=== PATIENT | male | born 1940 | race Asian ===

== ENCOUNTER → 2017-06-08 | Outpatient (CLI) | payer MEDICARE, MEDICAID ==
[2017-06-08 10:49] LABS: ASPARTATE AMINO TRANSFERASE 26 U/L (15-37); BLOOD UREA NITROGEN 15 mg/dL (7-18)
[2017-06-08 10:50] LABS: HEMATOCRIT 43.5 % (39.2-51.8); HEMOGLOBIN 14.7 g/dL (13.7-18.0)
== END | disposition home or self-care (01) ==
LOC: LAB 10:07
PROVIDERS: ATTEND Family Medicine
DX: R03.0 Elevated blood-pressure reading, without diagnosis of hypertension (principal); R73.01 Impaired fasting glucose; R79.89 Other specified abnormal findings of blood chemistry
CPT/HCPCS: 36415; 80053; 80061; 82043; 83036; 85025

== ENCOUNTER → 2017-10-22 | Outpatient (CLI) | payer MEDICARE, MEDICAID ==
[2017-10-22 10:07] LABS: BASOPHILS # (AUTO) 0.01 x10^3/uL (0-0.1); BASOPHILS % (AUTO) 0 % (0-1); EOSINOPHILS # (AUTO) 0.03 x10^3/uL (0-0.4); EOSINOPHILS % (AUTO) 1 % (1-7); LYMPHOCYTES # (AUTO) 1.34 x10^3/uL (1-3.4); LYMPHOCYTES % (AUTO) 35 % (22-44); MD NO; MEAN CORPUSCULAR HEMOGLOBIN 32.2 pg (27.5-34.5); MEAN CORPUSCULAR HGB CONC 33.8 g/dL (33.2-36.2); MEAN CORPUSCULAR VOLUME 95.4 fL (81-97); MEAN PLATELET VOLUME 7.2 fL (7.4-10.4); MONOCYTES # (AUTO) 0.28 x10^3/uL (0.2-0.8); MONOCYTES % (AUTO) 7 % (2-9); NEUTROPHILS # (AUTO) 2.15 x10^3/uL (1.8-6.8); NEUTROPHILS % (AUTO) 56 % (42-75); PLATELET COUNT 213 x10^3/uL (130-400); RED BLOOD COUNT 4.84 x10^6/uL (4.38-5.82); RED CELL DISTRIBUTION WIDTH 13.7 % (9.4-14.8)
[2017-10-22 10:15] LABS: ALANINE AMINOTRANSFERASE 31 U/L (12-78); ALBUMIN 3.9 g/dL (3.4-5.0); ANION GAP 7 mmol/L (5-15); CALCIUM 8.7 mg/dL (8.5-10.1); CHLORIDE 103 mmol/L (98-107)
[2017-10-22 10:17] LABS: ALKALINE PHOSPHATASE 55 U/L (45-117); BILIRUBIN,TOTAL 0.8 mg/dL (0.2-1.0); CHOL/HDL RATIO 2.7; CHOLESTEROL, TOTAL 172 mg/dL (140-239); HDL CHOL % 37 % (26-37); HDL CHOLESTEROL (DIRECT) 63 mg/dL (40-60); LDL CHOLESTEROL,CALCULATED 93 mg/dL (54-169); LDL/HDL RATIO 1.5 (0.5-3.0); TOTAL PROTEIN 7.6 g/dL (6.4-8.2); TRIGLYCERIDES 79 mg/dL (50-200); VLDL CHOLESTEROL 16 mg/dL (0-25)
[2017-10-22 13:38] LABS: HEMOGLOBIN A1C 6.3 % (4.2-6.3)
== END ==
LOC: LAB 09:39
PROVIDERS: ATTEND Family Medicine
DX: R03.0 Elevated blood-pressure reading, without diagnosis of hypertension (principal); R73.01 Impaired fasting glucose
CPT/HCPCS: 36415; 80053; 80061; 82043; 83036; 85025

== ENCOUNTER → 2018-03-19 | Outpatient (CLI) | payer MEDICARE, MEDICAID ==
[2018-03-19 10:24] LABS: ALANINE AMINOTRANSFERASE 56 U/L (12-78); ALBUMIN 3.4 g/dL (3.4-5.0); ANION GAP 10 mmol/L (5-15); CALCIUM 8.8 mg/dL (8.5-10.1); CHLORIDE 98 mmol/L (98-107); CREATININE 0.89 mg/dL (0.7-1.3)
[2018-03-19 10:27] LABS: ALKALINE PHOSPHATASE 65 U/L (45-117); BILIRUBIN,TOTAL 0.7 mg/dL (0.2-1.0); TOTAL PROTEIN 7.8 g/dL (6.4-8.2)
[2018-03-19 10:32] LABS: HEMOGLOBIN A1C 6.4 % (4.2-6.3)
== END | disposition home or self-care (01) ==
LOC: LAB 09:48
PROVIDERS: ATTEND Family Medicine
DX: R73.01 Impaired fasting glucose (principal)
CPT/HCPCS: 36415; 80053; 83036

== ENCOUNTER → 2018-06-24 | Outpatient (CLI) | payer MEDICARE, MEDICAID ==
[2018-06-24 10:00] LABS: BASOPHILS # (AUTO) 0.01 x10^3/uL (0-0.1); BASOPHILS % (AUTO) 0 % (0-1); EOSINOPHILS # (AUTO) 0.06 x10^3/uL (0-0.4); EOSINOPHILS % (AUTO) 2 % (1-7); LYMPHOCYTES # (AUTO) 1.43 x10^3/uL (1-3.4); LYMPHOCYTES % (AUTO) 35 % (22-44); MD NO; MEAN CORPUSCULAR HEMOGLOBIN 33.3 pg (27.5-34.5); MEAN CORPUSCULAR HGB CONC 34.3 g/dL (33.2-36.2); MEAN PLATELET VOLUME 7.9 fL (7.4-10.4); MONOCYTES # (AUTO) 0.32 x10^3/uL (0.2-0.8); MONOCYTES % (AUTO) 8 % (2-9); NEUTROPHILS # (AUTO) 2.29 x10^3/uL (1.8-6.8); NEUTROPHILS % (AUTO) 56 % (42-75); PLATELET COUNT 198 x10^3/uL (130-400); RED BLOOD COUNT 4.83 x10^6/uL (4.38-5.82); RED CELL DISTRIBUTION WIDTH 14.6 % (9.4-14.8)
[2018-06-24 10:08] LABS: ALANINE AMINOTRANSFERASE 33 U/L (12-78); ANION GAP 3 mmol/L (5-15); CALCIUM 8.4 mg/dL (8.5-10.1); CHLORIDE 103 mmol/L (98-107); CREATININE 1.06 mg/dL (0.7-1.3)
[2018-06-24 10:11] LABS: ALKALINE PHOSPHATASE 67 U/L (45-117); BILIRUBIN,TOTAL 0.7 mg/dL (0.2-1.0); CHOL/HDL RATIO 2.7; CHOLESTEROL, TOTAL 167 mg/dL (140-239); HDL CHOL % 37 % (26-37); HDL CHOLESTEROL (DIRECT) 61 mg/dL (40-60); LDL CHOLESTEROL,CALCULATED 77 mg/dL (54-169); LDL/HDL RATIO 1.3 (0.5-3.0); TOTAL PROTEIN 8.2 g/dL (6.4-8.2); TRIGLYCERIDES 144 mg/dL (50-200); VLDL CHOLESTEROL 29 mg/dL (0-25)
[2018-06-24 10:40] LABS: HEMOGLOBIN A1C 5.9 % (4.2-6.3)
== END | disposition home or self-care (01) ==
LOC: LAB 09:32
PROVIDERS: ATTEND Family Medicine
DX: Z12.5 Encounter for screening for malignant neoplasm of prostate (principal); N40.0 Benign prostatic hyperplasia without lower urinary tract symptoms; R03.0 Elevated blood-pressure reading, without diagnosis of hypertension; E11.9 Type 2 diabetes mellitus without complications
CPT/HCPCS: 36415; 80053; 80061; 82043; 83036; 84153; 84154; 85025; G0103

== ENCOUNTER 2019-02-17 09:21 | Outpatient (CLI) | payer MEDICARE, MEDICAID ==
[2019-02-17 09:57] LABS: BASOPHILS # (AUTO) 0.01 x10^3/uL (0-0.1); BASOPHILS % (AUTO) 0 % (0-1); EOSINOPHILS # (AUTO) 0.06 x10^3/uL (0-0.4); EOSINOPHILS % (AUTO) 1 % (1-7); LYMPHOCYTES # (AUTO) 1.79 x10^3/uL (1-3.4); LYMPHOCYTES % (AUTO) 36 % (22-44); MD NO; MEAN CORPUSCULAR HEMOGLOBIN 31.4 pg (27.5-34.5); MEAN CORPUSCULAR HGB CONC 33.1 g/dL (33.2-36.2); MEAN CORPUSCULAR VOLUME 94.8 fL (81-97); MONOCYTES # (AUTO) 0.25 x10^3/uL (0.2-0.8); MONOCYTES % (AUTO) 5 % (2-9); NEUTROPHILS # (AUTO) 2.83 x10^3/uL (1.8-6.8); NEUTROPHILS % (AUTO) 57 % (42-75); PLATELET COUNT 182 x10^3/uL (130-400); RED BLOOD COUNT 4.25 x10^6/uL (4.38-5.82); RED CELL DISTRIBUTION WIDTH 14.6 % (9.4-14.8)
[2019-02-17 10:06] LABS: ALANINE AMINOTRANSFERASE 31 U/L (12-78); ALBUMIN 3.7 g/dL (3.4-5.0); ANION GAP 7 mmol/L (5-15); CALCIUM 8.9 mg/dL (8.5-10.1); CHLORIDE 106 mmol/L (98-107); CHOLESTEROL, TOTAL 163 mg/dL (140-239); CREATININE 1.53 mg/dL (0.7-1.3)
[2019-02-17 10:08] LABS: ALKALINE PHOSPHATASE 61 U/L (45-117); BILIRUBIN,TOTAL 0.4 mg/dL (0.2-1.0); CHOL/HDL RATIO 2.5; HDL CHOL % 40 % (26-37); HDL CHOLESTEROL (DIRECT) 65 mg/dL (40-60); LDL CHOLESTEROL,CALCULATED 88 mg/dL (54-169); LDL/HDL RATIO 1.4 (0.5-3.0); TRIGLYCERIDES 48 mg/dL (50-200); VLDL CHOLESTEROL 10 mg/dL (0-25)
[2019-02-17 10:12] LABS: HEMOGLOBIN A1C 6.6 % (4.2-6.3)
== END 2019-02-17 23:59 | disposition home or self-care (01) ==
LOC: LAB 09:21
PROVIDERS: ATTEND Family Medicine
DX: Z12.5 Encounter for screening for malignant neoplasm of prostate (principal); N40.0 Benign prostatic hyperplasia without lower urinary tract symptoms; R03.0 Elevated blood-pressure reading, without diagnosis of hypertension; R73.01 Impaired fasting glucose; R79.89 Other specified abnormal findings of blood chemistry
CPT/HCPCS: 36415; 80053; 80061; 82043; 83036; 84154; 85025; G0103; 84153

== ENCOUNTER → 2019-08-18 | Outpatient (CLI) | payer MEDICARE, MEDICAID ==
[2019-08-18 15:51] LABS: ALBUMIN 3.9 g/dL (3.4-5.0); ANION GAP 6 mmol/L (5-15); CALCIUM 9.3 mg/dL (8.5-10.1); CHLORIDE 104 mmol/L (98-107)
[2019-08-18 15:55] LABS: ALANINE AMINOTRANSFERASE 38 U/L (12-78); ALKALINE PHOSPHATASE 53 U/L (45-117); BILIRUBIN,TOTAL 0.8 mg/dL (0.2-1.0); CREATININE 1.55 mg/dL (0.7-1.3); TOTAL PROTEIN 8.1 g/dL (6.4-8.2)
[2019-08-18 16:06] LABS: HEMOGLOBIN A1C 6.8 % (4.2-6.3)
== END | disposition home or self-care (01) ==
LOC: LAB 15:15
PROVIDERS: ATTEND Family Medicine
DX: E11.9 Type 2 diabetes mellitus without complications (principal)
CPT/HCPCS: 36415; 80053; 83036

== ENCOUNTER 2019-10-28 08:10 | Outpatient (CLI) | payer MEDICARE, MEDICAID ==
[2019-10-28 08:33] LABS: BASOPHILS # (AUTO) 0.02 x10^3/uL (0-0.1); BASOPHILS % (AUTO) 1 % (0-1); EOSINOPHILS # (AUTO) 0.03 x10^3/uL (0-0.4); EOSINOPHILS % (AUTO) 1 % (1-7); LYMPHOCYTES # (AUTO) 1.26 x10^3/uL (1-3.4); LYMPHOCYTES % (AUTO) 27 % (22-44); MD NO; MEAN CORPUSCULAR HEMOGLOBIN 32.3 pg (27.5-34.5); MEAN CORPUSCULAR HGB CONC 33.5 g/dL (33.2-36.2); MEAN CORPUSCULAR VOLUME 96.2 fL (81-97); MEAN PLATELET VOLUME 7.1 fL (7.4-10.4); MONOCYTES # (AUTO) 0.29 x10^3/uL (0.2-0.8); MONOCYTES % (AUTO) 6 % (2-9); NEUTROPHILS # (AUTO) 3.14 x10^3/uL (1.8-6.8); NEUTROPHILS % (AUTO) 66 % (42-75); PLATELET COUNT 237 x10^3/uL (130-400); RED CELL DISTRIBUTION WIDTH 13.5 % (9.4-14.8)
[2019-10-28 08:43] LABS: ALBUMIN 3.8 g/dL (3.4-5.0); ANION GAP 10 mmol/L (5-15); CHLORIDE 103 mmol/L (98-107)
[2019-10-28 08:47] LABS: ALANINE AMINOTRANSFERASE 46 U/L (12-78); ALKALINE PHOSPHATASE 60 U/L (45-117); BILIRUBIN,TOTAL 0.9 mg/dL (0.2-1.0); CHOL/HDL RATIO 2.1; CHOLESTEROL, TOTAL 159 mg/dL (140-239); CREATININE 1.58 mg/dL (0.7-1.3); HDL CHOL % 47 % (26-37); HDL CHOLESTEROL (DIRECT) 75 mg/dL (40-60); LDL CHOLESTEROL,CALCULATED 74 mg/dL (54-169); TOTAL PROTEIN 7.7 g/dL (6.4-8.2); TRIGLYCERIDES 49 mg/dL (50-200); VLDL CHOLESTEROL 10 mg/dL (0-25)
== END 2019-10-28 23:59 | disposition home or self-care (01) ==
LOC: LAB 08:10
PROVIDERS: ATTEND Family Medicine
DX: Z12.5 Encounter for screening for malignant neoplasm of prostate (principal); N40.0 Benign prostatic hyperplasia without lower urinary tract symptoms; R73.01 Impaired fasting glucose; R03.0 Elevated blood-pressure reading, without diagnosis of hypertension
CPT/HCPCS: 36415; 80053; 80061; 82043; 83036; 84153; 84154; 85025

== ENCOUNTER → 2019-11-19 | Outpatient (CLI) | payer MEDICARE, MEDICAID ==
[2019-11-19 12:43] LABS: BASOPHILS # (AUTO) 0.02 x10^3/uL (0-0.1); BASOPHILS % (AUTO) 0 % (0-1); EOSINOPHILS # (AUTO) 0.03 x10^3/uL (0-0.4); EOSINOPHILS % (AUTO) 1 % (1-7); LYMPHOCYTES # (AUTO) 0.84 x10^3/uL (1-3.4); LYMPHOCYTES % (AUTO) 17 % (22-44); MD NO; MEAN CORPUSCULAR HEMOGLOBIN 32.3 pg (27.5-34.5); MEAN CORPUSCULAR HGB CONC 33.3 g/dL (33.2-36.2); MEAN CORPUSCULAR VOLUME 96.9 fL (81-97); MEAN PLATELET VOLUME 7.3 fL (7.4-10.4); MONOCYTES # (AUTO) 0.23 x10^3/uL (0.2-0.8); MONOCYTES % (AUTO) 5 % (2-9); NEUTROPHILS # (AUTO) 3.92 x10^3/uL (1.8-6.8); NEUTROPHILS % (AUTO) 78 % (42-75); PLATELET COUNT 326 x10^3/uL (130-400); RED BLOOD COUNT 4.18 x10^6/uL (4.38-5.82); RED CELL DISTRIBUTION WIDTH 14.1 % (9.4-14.8)
[2019-11-19 13:52] LABS: ALBUMIN 3.7 g/dL (3.4-5.0); ANION GAP 8 mmol/L (5-15); CALCIUM 9.3 mg/dL (8.5-10.1); CHLORIDE 103 mmol/L (98-107)
[2019-11-19 13:57] LABS: ALANINE AMINOTRANSFERASE 51 U/L (12-78); ALKALINE PHOSPHATASE 80 U/L (45-117); BILIRUBIN,TOTAL 0.6 mg/dL (0.2-1.0); CHOL/HDL RATIO 2.2; CHOLESTEROL, TOTAL 183 mg/dL (140-239); CREATININE 1.28 mg/dL (0.7-1.3); HDL CHOL % 45 % (26-37); HDL CHOLESTEROL (DIRECT) 83 mg/dL (40-60); LDL CHOLESTEROL,CALCULATED 88 mg/dL (54-169); LDL/HDL RATIO 1.1 (0.5-3.0); TOTAL PROTEIN 8.2 g/dL (6.4-8.2); TRIGLYCERIDES 61 mg/dL (50-200); VLDL CHOLESTEROL 12 mg/dL (0-25)
== END | disposition home or self-care (01) ==
LOC: LAB 12:02
PROVIDERS: ATTEND Family Medicine
DX: E11.9 Type 2 diabetes mellitus without complications (principal); N40.0 Benign prostatic hyperplasia without lower urinary tract symptoms; R03.0 Elevated blood-pressure reading, without diagnosis of hypertension
CPT/HCPCS: 36415; 80053; 80061; 82043; 83036; 84153; 84154; 85025

== ENCOUNTER → 2019-12-08 | Outpatient (CLI) | payer MEDICARE, MEDICAID ==
[2019-12-08 09:37] LABS: BASOPHILS # (AUTO) 0.01 x10^3/uL (0-0.1); BASOPHILS % (AUTO) 0 % (0-1); EOSINOPHILS # (AUTO) 0.08 x10^3/uL (0-0.4); EOSINOPHILS % (AUTO) 1 % (1-7); LYMPHOCYTES # (AUTO) 1.16 x10^3/uL (1-3.4); LYMPHOCYTES % (AUTO) 22 % (22-44); MD NO; MEAN CORPUSCULAR HEMOGLOBIN 31.8 pg (27.5-34.5); MEAN CORPUSCULAR HGB CONC 33.2 g/dL (33.2-36.2); MEAN CORPUSCULAR VOLUME 95.8 fL (81-97); MEAN PLATELET VOLUME 6.3 fL (7.4-10.4); MONOCYTES # (AUTO) 0.31 x10^3/uL (0.2-0.8); MONOCYTES % (AUTO) 6 % (2-9); NEUTROPHILS # (AUTO) 3.69 x10^3/uL (1.8-6.8); NEUTROPHILS % (AUTO) 70 % (42-75); PLATELET COUNT 301 x10^3/uL (130-400); RED BLOOD COUNT 4.26 x10^6/uL (4.38-5.82); RED CELL DISTRIBUTION WIDTH 13.4 % (9.4-14.8)
[2019-12-08 09:47] LABS: ALANINE AMINOTRANSFERASE 44 U/L (12-78); ALBUMIN 3.5 g/dL (3.4-5.0); ANION GAP 7 mmol/L (5-15); CHLORIDE 106 mmol/L (98-107); CHOLESTEROL, TOTAL 193 mg/dL (140-239); CREATININE 1.25 mg/dL (0.7-1.3)
[2019-12-08 09:49] LABS: ALKALINE PHOSPHATASE 77 U/L (45-117); BILIRUBIN,TOTAL 0.5 mg/dL (0.2-1.0); CHOL/HDL RATIO 2.5; HDL CHOL % 39 % (26-37); HDL CHOLESTEROL (DIRECT) 76 mg/dL (40-60); LDL CHOLESTEROL,CALCULATED 92 mg/dL (54-169); LDL/HDL RATIO 1.2 (0.5-3.0); TRIGLYCERIDES 127 mg/dL (50-200); VLDL CHOLESTEROL 25 mg/dL (0-25)
== END | disposition home or self-care (01) ==
LOC: LAB 09:08
PROVIDERS: ATTEND Family Medicine
DX: N40.0 Benign prostatic hyperplasia without lower urinary tract symptoms (principal); E11.9 Type 2 diabetes mellitus without complications; R03.0 Elevated blood-pressure reading, without diagnosis of hypertension
CPT/HCPCS: 36415; 80053; 80061; 82043; 83036; 84153; 84154; 85025

== ENCOUNTER 2019-12-10 10:09 | Outpatient (CLI) | payer MEDICARE, MEDICAID ==
[2019-12-10 12:42] LABS: HCT (SEDRATE) 41.8 % (39.2-51.8)
[2019-12-10 12:54] LABS: C-REACTIVE PROTEIN, QUANT 0.59 mg/dL (0.02-0.49)
[2019-12-10 13:20] LABS: CREATINE KINASE, TOTAL 472 U/L (39-308); FREE T4 (FREE THYROXINE) 0.85 ng/dL (0.76-1.46)
[2019-12-10 13:21] LABS: FOLATE LEVEL > 20.0 ng/mL (3.1-17.5)
== END 2019-12-10 23:59 | disposition home or self-care (01) ==
LOC: CFH 10:09
PROVIDERS: ATTEND Family Medicine
DX: R53.1 Weakness (principal)
CPT/HCPCS: 36415; 82550; 82553; 82607; 82746; 84402; 84403; 84439; 84443; 84480; 85651; 86038; 86140; 86430

== ENCOUNTER 2020-01-05 09:18 | Outpatient (CLI) | payer MEDICARE, MEDICAID ==
[2020-01-05 09:45] LABS: HCT (SEDRATE) 39.1 % (39.2-51.8)
== END 2020-01-05 23:59 | disposition home or self-care (01) ==
LOC: LAB 09:18
PROVIDERS: ATTEND Family Medicine
DX: R74.9 Abnormal serum enzyme level, unspecified (principal)
CPT/HCPCS: 36415; 82550; 82552; 83615; 83625; 83880; 85651; 86140

== ENCOUNTER → 2020-05-17 | Outpatient (CLI) | payer MEDICARE, MEDICAID ==
[2020-05-17 12:05] LABS: BASOPHILS # (AUTO) 0.01 x10^3/uL (0-0.1); BASOPHILS % (AUTO) 0 % (0-1); EOSINOPHILS # (AUTO) 0.06 x10^3/uL (0-0.4); EOSINOPHILS % (AUTO) 1 % (1-7); LYMPHOCYTES # (AUTO) 1.31 x10^3/uL (1-3.4); LYMPHOCYTES % (AUTO) 24 % (22-44); MD NO; MEAN CORPUSCULAR HEMOGLOBIN 30.6 pg (27.5-34.5); MEAN CORPUSCULAR HGB CONC 32.3 g/dL (33.2-36.2); MEAN CORPUSCULAR VOLUME 94.7 fL (81-97); MEAN PLATELET VOLUME 7.1 fL (7.4-10.4); MONOCYTES # (AUTO) 0.43 x10^3/uL (0.2-0.8); MONOCYTES % (AUTO) 8 % (2-9); NEUTROPHILS # (AUTO) 3.72 x10^3/uL (1.8-6.8); NEUTROPHILS % (AUTO) 67 % (42-75); PLATELET COUNT 255 x10^3/uL (130-400); RED BLOOD COUNT 4.33 x10^6/uL (4.38-5.82); RED CELL DISTRIBUTION WIDTH 14.4 % (9.4-14.8)
[2020-05-17 12:18] LABS: ALANINE AMINOTRANSFERASE 32 U/L (12-78); ALBUMIN 3.8 g/dL (3.4-5.0); ANION GAP 8 mmol/L (5-15); CALCIUM 9.3 mg/dL (8.5-10.1); CHLORIDE 106 mmol/L (98-107); CREATININE 1.26 mg/dL (0.7-1.3)
[2020-05-17 12:22] LABS: ALKALINE PHOSPHATASE 65 U/L (45-117); BILIRUBIN,TOTAL 0.3 mg/dL (0.2-1.0); C-REACTIVE PROTEIN, QUANT 0.28 mg/dL (0.02-0.49); CHOLESTEROL, TOTAL 202 mg/dL (140-239); CREATINE KINASE, TOTAL 385 U/L (39-308); HDL CHOL % 34 % (26-37); HDL CHOLESTEROL (DIRECT) 68 mg/dL (40-60); LDL CHOLESTEROL,CALCULATED 123 mg/dL (54-169); LDL/HDL RATIO 1.8 (0.5-3.0); TOTAL PROTEIN 8.2 g/dL (6.4-8.2); TRIGLYCERIDES 57 mg/dL (50-200); VLDL CHOLESTEROL 11 mg/dL (0-25)
== END | disposition home or self-care (01) ==
LOC: LAB 11:30
PROVIDERS: ATTEND Family Medicine
DX: I16.0 Hypertensive urgency (principal); E11.9 Type 2 diabetes mellitus without complications; N40.0 Benign prostatic hyperplasia without lower urinary tract symptoms; R74.8 Abnormal levels of other serum enzymes
CPT/HCPCS: 36415; 80053; 80061; 82043; 82550; 82552; 83036; 83625; 84153; 84154; 85025; 85651; 86140

== ENCOUNTER → 2020-08-18 | Outpatient (CLI) | payer MEDICARE, MEDICAID ==
[2020-08-18 10:45] LABS: HCT (SEDRATE) 41.9 % (39.2-51.8)
== END | disposition home or self-care (01) ==
LOC: LAB 10:17
PROVIDERS: ATTEND Family Medicine
DX: R70.0 Elevated erythrocyte sedimentation rate (principal); R74.8 Abnormal levels of other serum enzymes
CPT/HCPCS: 36415; 82550; 82553; 85651; 86038; 86140; 86200; 86430

== ENCOUNTER → 2020-08-31 | Outpatient (CLI) | payer MEDICARE, MEDICAID ==
[2020-08-31 11:05] LABS: ALANINE AMINOTRANSFERASE 33 U/L (12-78); ALBUMIN 3.8 g/dL (3.4-5.0); ANION GAP 5 mmol/L (5-15); CHLORIDE 109 mmol/L (98-107)
[2020-08-31 11:08] LABS: ALKALINE PHOSPHATASE 64 U/L (45-117); BILIRUBIN,TOTAL 0.3 mg/dL (0.2-1.0)
== END | disposition home or self-care (01) ==
LOC: LAB 10:36
PROVIDERS: ATTEND Family Medicine
DX: E11.9 Type 2 diabetes mellitus without complications (principal)
CPT/HCPCS: 36415; 80053; 83036